=== PATIENT | female | born 1945 | race Caucasian/White ===

== ENCOUNTER 2022-04-10 17:27 | Emergency (ER) | payer OTHER, BC ==
[~2022-04-10] VITALS: Ht 154.9 cm; Wt 79.4 kg
[2022-04-10 17:52] VITALS: BP_SYST 141
--- NOTE | 2022-04-10 20:31 | NUR ---
Pt from home w/o of pain to right leg and head trauma after mechanical call. Pt denies LOC and K.O. PT states she has 10/10 pain to the right ankle.
[2022-04-10] MEDS ORDERED: MORPHINE 4 MG INJ. 4 MG/ML VIAL IM ONE (21:00)
--- NOTE | 2022-04-10 21:52 | NUR ---
short leg posterior splint with crutches.
[2022-04-10 21:58] VITALS: BP_SYST 141
--- NOTE | 2022-04-10 21:58 | NUR ---
Patient given written and verbal discharge instructions and verbalizes understanding. ER Dr. Callahan discussed with patient the results and treatment provided. Patient in stable condition. ID arm band removed. Patient educated on pain management and to follow up with PMD. Pain Scale 3. Opportunity for questions provided and answered. Medication side effect fact sheet provided.
== END 2022-04-10 21:58 | disposition home or self-care (01) ==
LOC: SED 17:27
DX: S82.51XA Displaced fracture of medial malleolus of right tibia, initial encounter for closed fracture (principal); R51.9 Headache, unspecified; Z79.899 Other long term (current) drug therapy; Z88.2 Allergy status to sulfonamides; W01.190A Fall on same level from slipping, tripping and stumbling with subsequent striking against furniture, initial encounter; Y93.89 Activity, other specified; Y92.89 Other specified places as the place of occurrence of the external cause; Y99.8 Other external cause status
CPT/HCPCS: 99284; 29515; 70450; 73564; 73610; 76376; 96372; J2270